=== PATIENT | female | born 1935 | race Caucasian/White ===

== ENCOUNTER → 2020-01-05 | Outpatient (CLI) | payer MEDICARE | END | disposition home or self-care (01) | LOC: RAH 08:11 | PROVIDERS: ATTEND Orthopaedic Surgery | DX: M75.101 Unspecified rotator cuff tear or rupture of right shoulder, not specified as traumatic (principal); M75.121 Complete rotator cuff tear or rupture of right shoulder, not specified as traumatic; M19.011 Primary osteoarthritis, right shoulder | CPT/HCPCS: 73221 ==

== ENCOUNTER 2024-04-01 05:31 | Emergency (ER) | payer OTHER, MEDICARE ==
[2024-04-01 07:44] VITALS: BP 130/63; PULSE 86; RESP 18; O2SAT 96
== END 2024-04-01 09:19 | disposition home or self-care (01) ==
LOC: EDH 05:31
DX: S60.212A Contusion of left wrist, initial encounter (principal); S00.93XA Contusion of unspecified part of head, initial encounter; I10 Essential (primary) hypertension; W18.39XA Other fall on same level, initial encounter; Y93.89 Activity, other specified; Y92.89 Other specified places as the place of occurrence of the external cause; Y99.8 Other external cause status
CPT/HCPCS: 70450; 72125; 73030; 73110; 73522

== ENCOUNTER 2024-08-08 08:08 | Emergency (ER) | payer OTHER, MEDICARE ==
[~2024-08-08] VITALS: Ht 154.9 cm; Wt 54.4 kg
--- NOTE | 2024-08-08 09:00 | ERN ---
General Chief Complaint: Eye Problems Stated Complaint: LEFT EYE PROSTHETIC Time Seen by MD: 08:09 Source: patient History of Present Illness Initial Comments Patient is a an 89-year-old female coming in to be evaluated for left eye prosthesis problem. Patient states that she was not able to remove it. Allergies: Coded Allergies: No Known Drug Allergies (Unverified Allergy, Unknown, 04/01/24) Past Medical History Past Medical History: Hypertension Medical History Other: GLASS LEFT EYE Past Surgical History: None ROS Dictation CONSTITUTIONAL: No chills, no fever, no weakness, no diaphoresis, no malaise. HEAD/FACE: No signs of trauma. EENT: No eye pain, no blurred vision, no tearing, no double vision, no ear pain, no ear discharge, no nose pain, no nasal congestion, no throat pain, no throat swelling, no mouth pain. RESPIRATORY: No cough, no orthopnea, no SOB, no stridor, no wheezing. CARDIOVASCULAR: No chest pain, no edema, no palpitations, no syncope. GASTROINTESTINAL/ABDOMINAL: No abdominal pain, no constipation, no diarrhea, no nausea, no vomiting. GENITOURINARY: No abnormal discharge, no dysuria, no frequent urination, no hematuria. No complaints of pain in the genitals. MUSCULOSKELETAL: No back pain, no gout, no joint pain, no joint swelling, no muscle pain, no muscle stiffness, no neck pain. INTEGUMENTARY: No change in color, no change in hair/nails, no dryness, no lesion, no lumps, no rash. NEUROLOGICAL/PSYCH: No anxiety, not depressed, no emotional problem, no headache, no numbness, no pre-existing deficit, no history of seizures, no tremors, no weakness. HEMATOLOGIC/LYMPHATIC: Not anemic, no history of blood clots, no apparent bleeding, no bruising, glands not swollen. All Systems Negative, Except as Noted. Physical Exam Physical Exam Dictation VITAL SIGNS: Reviewed. GENERAL APPEARANCE: Alert, oriented x3, no acute distress, obese. HEAD AND FACE: Non-traumatic. EYES: PERRL, pink conjunctivas, left eye no prosthesis in place EARS: Pinnas intact and no signs of trauma or erythema. Ear canals clear and no discharge. TMs no erythema. NOSE: No discharge, no bleeding. OROPHARYNX: Mouth normal, teeth no caries, tongue pink. Pharynx clear, no erythema. Tonsils no exudates, no abscesses noted. Mucous membrane moist. NECK: Supple, non-tender, no thyromegaly, no masses, no JVD, no bruits. BREAST: Deferred. CHEST: No tenderness, no crepitus, no paradoxical movement, no retractions. LUNGS: Clear, well-ventilated, symmetric, no rales, no wheezing, no rhonchi, no stridor, good breath sounds bilaterally. HEART: Regular rate, regular rhythm, no murmur, no gallops. VASCULAR: No peripheral edema. ABDOMEN: Soft, positive bowel sounds, nondistended, no guarding, nontender, no rebound, no masses no hepatomegaly, no splenomegaly, no Vallecillo's sign, no hernias. RECTAL: Deferred. GENITAL: Deferred. NEUROLOGICAL: Normal speech, gross motor function intact, gross sensory function intact. MUSCULOSKELETAL: Neck nontender, full range of motion, back nontender, full range of motion. EXTREMITIES: Nontender, full range of motion. SKIN: Color pink, dry, no turgor, no rash, no lacerations, no abrasions, no contusions. LYMPHATICS: Deferred. MDM MDM: Differential diagnosis: Prosthesis evaluation, wellness exam Patient is an 89-year-old female coming in to be evaluated for possibility of left eye prosthesis issues. Patient states he was not able to remove it. Upon evaluation there is no prosthetic device in her eye. Patient will be discharged in stable condition with diagnosis of wellness exam. ED Course Vital Signs Date Time Temp Pulse Resp B/P (MAP) Pulse Ox O2 Delivery O2 Flow Rate FiO2 08/08/24 08:09 98.8 75 16 160/84 96 Room Air 0 DX & DISP Disposition: Discharge Departure Impression: Primary Impression: Wellness examination Condition: Stable Additional Instructions: FOLLOW-UP WITH PRIMARY CARE PROVIDER IN 1 TO 2 DAYS. TAKE MEDICATIONS DIRECTED HERE IN THE EMERGENCY ROOM. OKAY TO CONTINUE HOME MEDICATIONS UNLESS OTHERWISE DISCUSSED DURING YOUR VISIT IN THE EMERGENCY ROOM TODAY. RETURN TO YOUR NEAREST EMERGENCY ROOM IF SYMPTOMS WORSEN OR IF THERE IS NO IMPROVEMENT. CALL 911 IF YOU NEED IMMEDIATE ASSISTANCE. TAKE TYLENOL [id number] NEEDED AND IF NO CONTRAINDICATIONS ARE PRESENT. INCREASE ORAL HYDRATION. A WOUND CULTURE OR URINE CULTURE WAS ORDERED HERE IN THE EMERGENCY ROOM DEPARTMENT PLEASE FOLLOW-UP WITH PRIMARY CARE PROVIDER AND ADVISE THEM TO GET REPEAT PORTS FROM OUR FACILITY. IF YOU HAD ANY MARISA WRAP/SPLINTS THAT WERE APPLIED HERE, PLEASE DO NOT REMOVE THEM UNTIL YOU SEE YOUR PRIMARY CARE OR SPECIALTY. Referrals: Referrals: EPIFANIO PIERRE (PCP) Time of Disposition: 08:59 EFFIE DAUGHERTY MD Aug 08, 2024 09:00
[2024-08-08 09:24] VITALS: BP 113/65; PULSE 69; RESP 12; TEMP 98; O2SAT 97
== END 2024-08-08 09:27 | disposition home or self-care (01) ==
LOC: EDH 08:08
DX: Z00.00 Encounter for general adult medical examination without abnormal findings (principal); I10 Essential (primary) hypertension
CPT/HCPCS: 99281

== ENCOUNTER 2025-06-30 16:36 | Emergency (ER) | payer OTHER, MEDICARE ==
[~2025-06-30] VITALS: Ht 160 cm; Wt 52.2 kg
[2025-06-30 16:58] VITALS: BP 183/92; PULSE 81; RESP 17; TEMP 97.8; O2SAT 97
[2025-06-30] MEDS: LIDOCAINE HCL 1% 20 ML VIAL INJ SCH (17:27)
--- NOTE | 2025-06-30 17:49 | ERN ---
General Chief Complaint: Laceration/Avulsion Stated Complaint: LAC Time Seen by MD: 17:10 Time Seen by Midlevel: 17:10 Source: patient History of Present Illness Initial Comments 89-year-old female presents to the ER after she sustained a mechanical ground level fall. Patient states she tripped over some steps and fell onto the table hitting her forehead. Denies loss of consciousness. Denies being on any blood thinners Allergies: Coded Allergies: No Known Drug Allergies (Unverified Allergy, Unknown, 04/01/24) Home Meds Active Scripts Amoxicillin/Potassium Clav (Amox Tr-K Clv 875-125 mg Tab) 875 Mg-125 Mg Tablet, 1 EACH PO BID for 5 Days, #10 TAB 0 Refills Prov:SANGEETHA JEAN PAC 06/30/25 Past Medical History Past Medical History: No Pertinent History Medical History Other: denies pmhx Past Surgical History: Other ROS Dictation CONSTITUTIONAL: Negative except for HPI HEAD/FACE: Negative except for HPI EENT: Negative except for HPI RESPIRATORY: Negative except for HPI GASTROINTESTINAL/ABDOMINAL: Negative except for HPI GENITOURINARY: Negative except for HPI MUSCULOSKELETAL: Negative except for HPI INTEGUMENTARY: Negative except for HPI NEUROLOGICAL/PSYCH: Negative except for HPI HEMATOLOGIC/LYMPHATIC: Negative except for HPI All Systems Negative, Except as noted above. 13 point review of systems assessed and all negative except for above. Physical Exam Physical Exam Dictation Vital Signs reviewed General Appearance: Alert, oriented x 3, no acute distress, well developed, nourished. Head and Face: non-traumatic. Eyes: PERRL, pink conjunctivas, eyelid no trauma, anterior chamber with arcus senilis. Ears: Pinnas intact and no signs of trauma or erythema ear canals clear and no discharge TM no erythema Nose: No discharge, no bleeding. Oropharynx: Mouth normal, tongue pink, pharynx clear,no erythema, tonsils no exudates, no abscesses noted, mucous membrane moist Neck: Supple, non-tender, no thyromegaly, no masses, no JVD, no bruits Breast:Deferred Chest:No tenderness, no crepitus, no paradoxical movement, no retractions Lungs:Clear, well-ventilated, symmetric, no rales, no wheezing, no rhonchi, no stridor, good breath sounds bilaterally Heart: Regular rate, regular rhythm, no murmur, no gallops Vascular: no peripheral edema, Abdomen: Soft, positive bowel sounds, nondistended, no guarding, nontender, no rebound, no masses no hepatomegaly, no splenomegaly, no Vallecillo's sign, no hernias. Rectal: Deferred Genital: Deferred Neurological: Normal speech, motor function intact, sensory function intact Musculoskeletal: Neck nontender, full range of motion, back nontender, full range of motion, Extremities: nontender, full range of motion Skin: Forehead laceration to the mid forehead measuring 3 cm Lymphatic: Deferred MDM MDM: Differential diagnosis: Laceration, abrasion, scalp contusion, intracranial bleed, skull fracture There are no social concerns with this patient. Prescription drug management Prescriptions will include: Amoxicillin Medical management and examination interpretation discussions were had by me with other qualified healthcare professionals as indicated for the patient's care. ED Course Orders Procedure Category Date Status Time Ct Head/Brain W/O CT 06/30/25 Resulted Contrast 17:18 Ct Cervical Spine W/O CT 06/30/25 Resulted Contrast 17:18 Ct Maxillofacial W/O CT 06/30/25 Resulted Contrast 17:18 Acetaminophen 500mg PHA 06/30/25 Complete Tab (Tylenol 500mg T 17:30 Lidocaine Hcl 1% 20ml PHA 06/30/25 Complete Vial (Lidocaine Hc 17:30 Laceration Tray Set CPOE 06/30/25 Transmitted Up (Er) 17:19 Tetanus,Diphtheria PHA 06/30/25 Complete Tox [Adult] (Diphther 20:00 Current Medications Medications (Trade) Dose Ordered Sig/Crissy Route PRN Reason Start Time Stop Time Status Last Admin Dose Admin Acetaminophen (TYLenol 500MG TAB) 1,000 mg ONCE ONCE PO 06/30/25 17:30 06/30/25 17:31 DC 06/30/25 17:26 Lidocaine HCl (Lidocaine HCl 1% 20ml Vial) ONCE INJ 06/30/25 17:30 06/30/25 19:00 DC Tetanus/ Diphtheria Toxoids Adsorbed (DiphthERIA-teTANUS TOXOID [ADULT]/ DECAVAC) 0.5 ml ONCE ONCE IM 06/30/25 20:00 06/30/25 20:01 DC 06/30/25 20:10 Vital Signs Date Time Temp Pulse Resp B/P (MAP) Pulse Ox O2 Delivery O2 Flow Rate FiO2 06/30/25 16:58 97.9 81 17 183/92 97 Room Air* 0 21 06/30/25 16:37 97.9 82 16 182/92 96 Room Air 0 Procedure Dictation Procedure Name: Laceration Repair Indication: Reduce risk of infection Location: Forehead laceration measuring 4 cm Pre-Procedure Diagnosis: Laceration Post-Procedure Diagnosis: Repaired Laceration Informed consent was obtained before procedure started. PROCEDURE: The appropriate timeout was taken. The area was prepped and draped in the usual sterile fashion. Local anesthesia was achieved using 2cc of Lidocaine 1% without epinephrine. The wound was copiously irrigated. 7 5-0 ethilon simple interrupted sutures were placed. Estimated blood loss was less than 0.5 mL. A dressing was applied to the area and anticipatory guidance, as well as standard post-procedure care, was explained. Return precautions are given. The patient tolerated the procedure well without complications. Follow-up visit set for suture removal and evaluation of the laceration. DX & DISP Disposition: Discharge Departure Impression: Primary Impression: Forehead laceration Condition: Stable Scripts Amoxicillin/Potassium Clav (Amox Tr-K Clv 875-125 mg Tab) 875 Mg-125 Mg Tablet 1 EACH PO BID for 5 Days, #10 TAB 0 Refills Prov: SANGEETHA JEAN PAC 06/30/25 Additional Instructions: Your laceration was successfully repaired with seven sutures. These will need to be removed in 7-10 days. Please take your antibiotics as prescribed. If you notice any signs of infection please report to the ER for further evaluation. Referrals: KAYLA RAMOS MD (PCP) I have reviewed the case, and I agree with, Diagnosis and Plan I performed the substantive portion of the visit. I have reviewed and personally made and approve the management plan that is documented in the note by myself or the DINA. I acknowledge for responsibility for the patient's management plan. SANGEETHA JEAN PAC Jun 30, 2025 17:49
--- NOTE | 2025-06-30 18:01 | NUR ---
PATIENT RETURNED FROM CT.
--- NOTE | 2025-06-30 18:13 | HMCIMG ---
EXAM: CT Head Without IV contrast. CLINICAL HISTORY: fall TECHNIQUE: Axial computed tomography images of the head/brain without intravenous contrast. COMPARISON: None provided. 04/01/2024. FINDINGS: BRAIN: No acute bleed or infarct. Stable chronic ischemic changes. VENTRICLES: No hydrocephalus. ORBITS: Again noted is a left orbital prosthesis. SINUSES AND MASTOIDS: The paranasal sinuses and mastoid air cells are clear. BONES: No fracture. SOFT TISSUES: Unremarkable. IMPRESSION: 1. No acute bleed or infarct. Stable chronic ischemic changes. 2. Again noted is a left orbital prosthesis. /[place]
--- NOTE | 2025-06-30 18:38 | HMCIMG ---
EXAM: CT Cervical Spine Without IV contrast. CLINICAL HISTORY: fall TECHNIQUE: Axial computed tomography images of the cervical spine without intravenous contrast. Sagittal and coronal reformatted images were generated. COMPARISON: 04/01/2024 FINDINGS: ALIGNMENT: Straightening of the cervical spine which may be due to paraspinal muscle spasm. DEGENERATIVE CHANGES: Stable mild to moderate multilevel degenerative changes which are more pronounced in the lower cervical spine. SOFT TISSUES: The prevertebral soft tissues are within normal limits. BONES: No fracture or dislocation in the cervical spine. IMPRESSION: 1. No fracture or dislocation in the cervical spine. 2. Stable mild to moderate multilevel degenerative changes which are more pronounced in the lower cervical spine. 3. Straightening of the cervical spine which may be due to paraspinal muscle spasm. /[place]
--- NOTE | 2025-06-30 19:23 | HMCIMG ---
EXAM: CT Maxillofacial Without IV contrast. CLINICAL HISTORY: Fall TECHNIQUE: Axial computed tomography images of the face without intravenous contrast. Sagittal and coronal reformatted images were generated. COMPARISON: None provided. FINDINGS: FACIAL BONES/ORBITS: No acute fracture or aggressive appearing osseous lesion. The mandible is intact. Intraocular prosthesis in situ on the left side. Minimal air foci in the bilateral preseptal region. The paranasal sinuses appear clear. SOFT TISSUES: Minimal subgaleal swelling/hematoma measuring 2.5 mm with a laceration wound measuring 2.2 cm in width in the midline of the frontal region and air foci in the subcutaneous plane. No evidence of underlying osseous injury. IMPRESSION: Minimal subgaleal swelling/hematoma with a laceration wound in the midline of the frontal region and air foci in the subcutaneous plane. Consistent with traumatic etiology. No evidence of underlying osseous injury. Minimal air foci in the bilateral preseptal region. Likely physiological. Suggested clinical correlation. /[place]
[2025-06-30] MEDS ORDERED: AMOX1TAB16 PO (20:01)
== END 2025-06-30 20:17 | disposition home or self-care (01) ==
LOC: EDH 16:36
DX: S01.81XA Laceration without foreign body of other part of head, initial encounter (principal); W18.09XA Striking against other object with subsequent fall, initial encounter; Y93.89 Activity, other specified; Y92.89 Other specified places as the place of occurrence of the external cause; Y99.8 Other external cause status
CPT/HCPCS: 12013; 70450; 70486; 72125; 90471; 90714; 99284

== ENCOUNTER 2025-07-09 10:37 | Emergency (ER) | payer OTHER, MEDICARE ==
[~2025-07-09] VITALS: Ht 160 cm; Wt 53.5 kg
[~2025-07-09 10:37] MED LIST: AMOX1TAB16 PO
--- NOTE | 2025-07-09 11:04 | ERN ---
ED Note History of Present Illness Stated Complaint: SUTURE REMOVAL Chief Complaint: Suture/Staple Removal Time Seen by MD: 10:42 Time Seen by Midlevel: 10:48 Dictation: 89-year-old female coming in for suture removal there were placed seven days ago on the forehead. Allergies: Coded Allergies: No Known Drug Allergies (Unverified Allergy, Unknown, 04/01/24) Home Meds Active Scripts Amoxicillin/Potassium Clav (Amox Tr-K Clv 875-125 mg Tab) 875 Mg-125 Mg Tablet, 1 EACH PO BID for 5 Days, #10 TAB 0 Refills Prov:SANGEETHA JEAN PAC 06/30/25 Past Medical History Past Medical History: No Pertinent History Additional Past Medical Hx: denies pmhx Surgical History: Other Review of System Dictation Constitutional: Negative for fever,chills, and weight loss Eyes: Negative for injury, pain,redness, and discharge ENT: Negative for injury,pain or swelling Cardiovascular: Negative for chest pain, palpitations, and edema Respiratory: Negative for shortness of breath, cough, and wheezing, Abdomen/GI: Negative for abdominal pain, nausea, vomiting, diarrhea, and constipation Back: Negative for injury and pain : Negative for injury, bleeding and discharge MS/Extremity: Negative for injury and deformity Skin: Negative for rash, and discoloration, sutures in place Neuro: Negative for headache, weakness, numbness, tingling, and seizure Psych: Negative for suicide ideation, homicidal ideation, and hallucinations Review of Systems: was completed Initial Vital Sign VS Vital Signs Date Time Temp Pulse Resp B/P (MAP) Pulse Ox O2 Delivery O2 Flow Rate FiO2 07/09/25 10:38 97.9 75 16 158/72 96 Room Air Physical Exam Dictation General: awake, alert, NAD Head/Face: Normocephalic, atraumatic Eyes: PERRL, EOMI, vision at baseline ENT: oral cavity clear, TMs clear, no signs of infection Neck: Trachea midline, supple, no nuchal rigidity Cardiovascular: RRR, normal S1/S2, No MRGs, no JVD Respiratory: CTAB, no respiratory distress, No rales or wheezes Abdomen: Soft, non-tender, non-distended, normal bowel sounds, no guarding or rebound. Skin: Warm, dry, normal turgor, no rash, laceration on for looks intact, minimal scabbing, no wound dehiscence, sutures in place MS/Extremity: Pulses equal, no cyanosis, neurovascular intact, FROM Neuro: COAx4, GCS 15, strength 5/5, CN 2-12 intact, normal cerebellar exam, normal gait, Psych: Normal behavior, mood, and affect normal ED Course ED Course Vital Signs Date Time Temp Pulse Resp B/P (MAP) Pulse Ox O2 Delivery O2 Flow Rate FiO2 07/09/25 10:38 97.9 75 16 158/72 96 Room Air Medical Decision Making MDM MDM: 89-year-old female coming in for suture removal there were placed seven days ago on the forehead. Symptoms sudden sutures removed from the laceration of the forehead. Minimal bleeding. Educated patient on wound care and when to return back to the emergency room. Patient verbalized understanding, answered all questions. Differential diagnosis: Suture removal, wound dehiscence, embedded suture Rationale: Tests considered and ordered secondary to shared decision making include: Previous outside records reviewed: Old ER visits. Risk of complication and/or morbidity or mortality of patient management: None Medications-Per medication reconciliation Need for hospitalization: Patient does not meet criteria for hospitalization. Need for emergency major/minor surgery: No There are no social concerns with this patient. Prescription drug management Prescriptions will include symptomatic care Patient's prior external medical records from other ER visits were reviewed by me as indicated. Prior testing and results from previous visits were reviewed. Prior tests were taken into account with medical decision making and resource utilization, independent historian/historians were used to obtain complete medical history. I independently interpreted the test that were performed, results were reviewed by me and considered findings on radiology if ordered. Medical management and examination interpretation discussions were had by me with other qualified healthcare professionals as indicated for the patient's care. DX & DISP Disposition: Discharge Departure Impression: Primary Impression: Visit for suture removal Condition: Stable Additional Instructions: Keep area clean and dry. Return to the hospital if you notice any redness, drainage, foul odor or any signs of infection. Referrals: KAYLA RAMOS MD (PCP) Time of Disposition: 11:04 I have reviewed the case, and I agree with, Diagnosis and Plan BRIGHT SCHAFFER CNP Jul 09, 2025 11:04
[2025-07-09 11:45] VITALS: BP 151/72; PULSE 75; RESP 16; TEMP 97.8; O2SAT 96
[2025-07-09] MEDS: NEOMY SULF/BACITRA/POLYMYXIN B 1 EACH PACKET TP ONE (11:49)
== END 2025-07-09 11:50 | disposition home or self-care (01) ==
LOC: EDH 10:37
DX: S01.81XD Laceration without foreign body of other part of head, subsequent encounter (principal); X58.XXXD Exposure to other specified factors, subsequent encounter; Z48.02 Encounter for removal of sutures
CPT/HCPCS: 99282

== ENCOUNTER 2025-08-07 07:40 | Emergency (ER) | payer OTHER, MEDICARE ==
[~2025-08-07] VITALS: Ht 157.5 cm; Wt 54.4 kg
[2025-08-07 08:20] LABS: IMMATURE GRANULOCYTE ABSOLUTE 0.04 K/uL (0-1); NUCLEATED RED BLOOD CELLS 0.0 % (0.0-0.19); PLATELET COUNT (AUTO) 261 K/uL (130-400); RED BLOOD CELL COUNT(AUTO) 4.32 MIL/uL (4.00-5.50); RED CELL DISTRIBUTION WIDTH 13.7 % (11.0-15.5); WHITE BLOOD COUNT (AUTO) 7.8 K/uL (4.8-10.8)
[2025-08-07 08:27] LABS: CREATININE 0.6 mg/dL (0.5-1.0); GLOMERULAR FILTR. RATE CALC 86.0 mL/min (>90); GLUCOSE,RANDOM 105.0 mg/dL (70-105); SODIUM SERUM 140.0 mmol/L (136-145); UREA NITROGEN, BLOOD 14.0 mg/dL (7-18)
[2025-08-07 08:34] VITALS: BP 157/78; PULSE 95; RESP 16; TEMP 98.3; O2SAT 77
[2025-08-07] MEDS ORDERED: MUPI15CR12 TP (08:37)
[2025-08-07] MEDS ORDERED: FEXO180T94 PO (08:37)
--- NOTE | 2025-08-07 08:40 | ERN ---
General Chief Complaint: Lower Extremity Pain/Injury Stated Complaint: LT LOWER LEG PAIN Time Seen by MD: 07:58 History of Present Illness Initial Comments 89-year-old female here for evaluation of left lower extremity scratch after she was run over by her dog. Patient states that she was in her normal state of health when she noticed increased bruising and redness of the area that she decided to come to the emergency room for evaluation. No fever no cough no shortness a breath. No nausea vomiting diarrhea. No chest pain. She is not complaining of any pain at this time Allergies: Coded Allergies: No Known Drug Allergies (Unverified Allergy, Unknown, 04/01/24) Home Meds Active Scripts Amoxicillin/Potassium Clav (Amox Tr-K Clv 875-125 mg Tab) 875 Mg-125 Mg Tablet, 1 EACH PO BID for 5 Days, #10 TAB 0 Refills Prov:SANGEETHA JEAN PAC 06/30/25 Past Medical History Past Medical History: No Pertinent History Medical History Other: denies pmhx Past Surgical History: Appendectomy, Hysterectomy Skin: (+) abrasion Review of Systems: was completed, & the rest were negative. Physical Exam Physical Exam Dictation GENERAL APPEARANCE NAD, activity normal for age, well developed/ well nourished, no cyanosis, pallor, or diaphoresis. EYES lids/conjunctiva normal. EARS/NOSE/THROAT Mucous membranes moist, nares normal, lips/teeth normal uvula midline without oral pharyngeal erythema, exudate or swelling TMs normal bilaterally. No lymphangitis/lymphedema. HEAD/NECK normocephalic atraumatic, no facial trauma, neck is supple. RESPIRATORY respiratory effort normal, speaks in full sentences, no tripod position, no accessory muscle use. Lungs clear to auscultation without rhonchi, wheezes, rales CARDIAC Regular rate and rhythm, no edema. ABDOMINAL Soft, ND/NT. No evidence of fluid wave. No pulsatile masses on exam, rebound tenderness, Vallecillo sign or pain over Mcburney's point. MUSCLES/EXTREMITIES No abnormal range of motion, no swelling. SKIN left lower extremity on anteromedial marcelino notes 1 cm healing laceration. Not amenable to sutures. Also with 5 x 1 cm area of erythema, ecchymosis. No underlying fluctuance. No heat. NEUROLOGICAL Speech is clear and appropriate. Normal level of consciousness. Gait and coordination are normal. 5/5 strength in all extremities. PSYCH Normal mood and affect. Judgement/competence is appropriate Results Laboratory and Microbiology Lab and Micro Result Laboratory Tests Test 08/07/25 08:15 White Blood Count 7.8 K/uL (4.8-10.8) Red Blood Count 4.32 MIL/uL (4.00-5.50) Hemoglobin 12.7 g/dL (12.0-16.0) Hematocrit 39.5 % (36-48) Mean Corpuscular Volume 91.4 fL (79-99) Mean Corpuscular Hemoglobin 29.4 pg (27.0-33.0) Mean Corpuscular Hemoglobin Concent 32.2 g/dL (32.0-36.0) Red Cell Distribution Width 13.7 % (11.0-15.5) Platelet Count 261 K/uL (130-400) Mean Platelet Volume 9.3 fL (7.5-10.5) Immature Granulocyte % (Auto) 0.5 % (0-1) Neutrophils (%) (Auto) 71.3 % (40.0-77.0) Lymphocytes (%) (Auto) 17.8 % (21.0-51.0) L Monocytes (%) (Auto) 6.4 % (3.0-13.0) Eosinophils (%) (Auto) 3.6 % (0.0-8.0) Basophils (%) (Auto) 0.4 % (0.0-5.0) Neutrophils # (Auto) 5.5 K/uL (1.8-7.7) Lymphocytes # (Auto) 1.4 K/uL (1.0-4.8) Monocytes # (Auto) 0.5 K/uL (0.1-1.0) Eosinophils # (Auto) 0.28 K/uL (0.00-0.70) Basophils # (Auto) 0.03 K/uL (0.00-0.20) Absolute Immature Granulocyte (auto 0.04 K/uL (0-1) Nucleated Red Blood Cells 0.0 % (0.0-0.19) Sodium Level 140 mmol/L (136-145) Potassium Level 4.2 mmol/L (3.5-5.1) Chloride Level 104 mmol/L (101-111) Carbon Dioxide Level 33 mmol/L (21-32) H Blood Urea Nitrogen 14 mg/dL (7-18) Creatinine 0.6 mg/dL (0.5-1.0) Glomerular Filtration Rate Calc 86 mL/min (>90) Random Glucose 105 mg/dL (70-105) Total Calcium 9.1 mg/dL (8.5-10.1) MDM 89-year-old female here for evaluation of left lower extremity scratch from a dog. Has tetanus shot from earlier this year status post fall. Noted to have senile purpura. No signs of infection. White blood cell count reassuring. We will discharge home at this time Patient's prior external medical records from other ER visits were reviewed by me as indicated. Prior testing and results from previous visits were reviewed. Prior tests were taken into account with medical decision making and resource utilization, independent historian/historians were used to obtain complete medical history. I independently interpreted the test that were performed, results were reviewed by me and considered findings on radiology if ordered. Medical management and examination interpretation discussions were had by me with other qualified healthcare professionals as indicated for the patient's care. Labs and imaging reviewed with patient. All questions answered at this time. Patient advised to follow up with primary care physician in the next few days. Patient well-appearing, no acute distress. Vital signs stable. Will discharge at this time. ED Course Orders Procedure Category Date Status Time Cbc With Differential LAB 08/07/25 Complete 08:09 Basic Metabolic Panel LAB 08/07/25 Complete 08:09 Mupirocin Ointment PHA 08/07/25 Verified (Bactroban Oint) 09:00 Vital Signs Date Time Temp Pulse Resp B/P (MAP) Pulse Ox O2 Delivery O2 Flow Rate FiO2 08/07/25 08:34 98.2 95 16 157/78 77 Room Air* 0 21 08/07/25 07:42 98.2 78 18 163/101 97 Room Air 0 DX & DISP Disposition: Discharge Departure Impression: Primary Impression: Senile purpura Additional Impressions: Dog scratch, Allergic reaction Condition: Stable Scripts Mupirocin Calcium (Mupirocin) 2 % Cream..g. 1 APPL TP TID for 10 Days, #30 GM 0 Refills Prov: WALTER KANG MD 08/07/25 Fexofenadine HCl (Jacque Allergy) 180 Mg Tablet 1 TAB PO DAILY for allergy symptoms for 30 Days, #30 TAB 0 Refills Prov: WALTER KANG MD 08/07/25 Referrals: KAYLA RAMOS MD (PCP) WALTER KANG MD Aug 07, 2025 08:40
[2025-08-07] MEDS: MUPIROCIN OINTMENT 22 GM TUBE TP ONE (09:09)
--- NOTE | 2025-08-07 09:10 | NUR ---
DC PATIENT WAS DC'D BY DR KANG, I DC'D PATIENTS IV WITH CATH STILL INTACT AND APPLIED 2X2 GAUZE WITH COBAN I EXPLAINED TO PATIENT TO FOLLOW UP WITH PCP, PROVIDED INFO BASED ON DIAGNOSIS, PRESCRIPTIONS AND ANSWERED ANY FOLLOW UP QUESTIONS PATIENT AMBLATED OUT OF ED, NO COMPLICATIONS
== END 2025-08-07 09:09 | disposition home or self-care (01) ==
LOC: EDH 07:40
DX: T78.40XA Allergy, unspecified, initial encounter (principal); S80.12XA Contusion of left lower leg, initial encounter; D69.2 Other nonthrombocytopenic purpura; Z90.49 Acquired absence of other specified parts of digestive tract; Z90.710 Acquired absence of both cervix and uterus; W54.1XXA Struck by dog, initial encounter; Y93.89 Activity, other specified; Y92.89 Other specified places as the place of occurrence of the external cause; Y99.8 Other external cause status
CPT/HCPCS: 36415; 80048; 85025; 99282